=== PATIENT | male | born 1935 | race Caucasian/White ===

== ENCOUNTER 2017-04-07 15:47 | Emergency (ER) | payer MEDICARE, OTHER ==
--- NOTE | 2017-04-13 15:52 | ER ---
ADMIT: 04/07/2017 RM/LOC: ER [facility] MR#: [id number] [id number] [place] [address] [place] [address] Emergency Room Report SEX: M AGE: 81 : 1935 DATE: 04/07/2017 ADDENDUM: An 81-year-old male, comes in with some nasal congestion, runny nose, coughing up some greenish sputum, and itchy-watery eyes with mild cough for the past 3 to 4 days. States he was around his brother last week, who had similar symptoms. On physical exam, he has clear watery eye discharge with some conjunctival injection bilaterally. He has some rhinorrhea with normal oropharynx, lungs are completely clear. Based on his symptoms, I believe he does have a viral illness. He is given instructions and is to follow up with Dr. Lily Condon in [facility] if he is not improving. Return for any concerning symptoms. Phillip Cardona MD/ tyrell JOB #: [id number] CC: Phillip Cardona MD, Attending Physician Lily Condon, Family Physician
== END 2017-04-07 16:25 | disposition home or self-care (01) ==
LOC: ER 15:47
DX: B34.9 Viral infection, unspecified (principal)